=== PATIENT | female | born 1995 | race Caucasian/White ===

== ENCOUNTER 2024-11-06 19:44 | Emergency (ER) | payer OTHER ==
[~2024-11-06] VITALS: Ht 167.6 cm; Wt 56.4 kg
[2024-11-06 22:55] VITALS: BP 141/88; TEMP 98.7; O2SAT 100
== END 2024-11-06 23:05 | disposition home or self-care (01) ==
LOC: M ED 19:44
DX: S60.931A Unspecified superficial injury of right thumb, initial encounter (principal); Y92.019 Unspecified place in single-family (private) house as the place of occurrence of the external cause; Y93.9 Activity, unspecified; Y99.9 Unspecified external cause status; Z88.0 Allergy status to penicillin

== ENCOUNTER 2024-12-31 19:23 | Emergency (ER) | payer OTHER ==
[~2024-12-31] VITALS: Ht 167.6 cm; Wt 52.2 kg
[2024-12-31 19:24] VITALS: BP 137/91; TEMP 98.4; O2SAT 100
[2024-12-31] MEDS ORDERED: NORG0.25 (19:32)
[2024-12-31] MEDS: KETOROLAC TROMETHAMINE 10 MG TAB PO ONE (19:58)
[2024-12-31] MEDS: METOCLOPRAMIDE 10 MG TAB PO ONE (19:59)
[2024-12-31] MEDS ORDERED: REGL10TA6 PO (20:14)
[2024-12-31] MEDS ORDERED: KETO-204 PO (20:14)
== END 2024-12-31 20:32 | disposition home or self-care (01) ==
LOC: M ED 19:23
DX: S06.0X0A Concussion without loss of consciousness, initial encounter (principal); W19.XXXA Unspecified fall, initial encounter; Y92.009 Unspecified place in unspecified non-institutional (private) residence as the place of occurrence of the external cause; Y93.9 Activity, unspecified; Y99.9 Unspecified external cause status; F17.200 Nicotine dependence, unspecified, uncomplicated; Z88.0 Allergy status to penicillin